=== PATIENT | female | born 1985 ===

== ENCOUNTER 2022-05-06 20:47 | Inpatient (IN) | payer BC, SELFPAY ==
[2022-05-06 21:20] VITALS: BP 94/64; PULSE 93; RESP 15; TEMP 36.9; O2SAT 97; BMI 36.1
--- NOTE | 2022-05-06 21:57 | ED_ITS ---
Documented by User: Sedrick Reynoso MD 05/14/22 17:21 HPI - Abdominal Pain General: Chief Complaint: Abdominal Pain Stated Complaint: abd pain Time Seen by Provider: 05/06/22 21:57 History of Present Illness: Ms. Mesa is a 36-year-old lady with history of multiple PEs, factor V Leiden, chronic anticoagulation, status post gastric sleeve surgery, status post IVC filter placement presenting to the emergency department due to abdominal pain. Reports onset of symptoms was subacute at approximately 5 AM this morning. Right-sided abdominal pain mostly in the right upper quadrant region though some in the right flank. Denies associated fevers, nausea, vomiting, change in bowel or bladder function. Has not had a period for 8 to 9 months reportedly going through menopause. Overall course of symptoms has worsened. Intensity is moderate to severe when moving however mild at rest. Tried Colace with successful bowel movement without specific relief of symptoms. Denies frequent episodes in the past. No other specific changes in health, exacerbating, or alleviating factors identified. Onset (ago): hour(s) Pain Consistency: constant Location: RUQ and R flank Severity: severe Migration to: no migration Exacerbating factors: movement Related Data: Date of Last Menstrual Period: 10/04/21 Review of Systems General: Reports: 10 or more systems reviewed and unremarkable except in HPI and below PFSH ED PFSH: Medical History Asthma Factor V deficiency PE (pulmonary thromboembolism) Presence of IVC filter Surgical History History of ankle surgery History of placement of ear tubes Hx of tonsillectomy S/P gastric sleeve procedure Social History Smoking and tobacco status: never smoked Alcohol intake: never Lives independently: Yes Household members: family Current occupational status: employed Female Reproductive History: Date of last menstrual period: 10/04/21 Physical Exam Const: COMMON NORMALS: alert GENERAL APPEARANCE: cooperative, well develo ped and in distress (uncomfortable due to pain) HENMT: COMMON NORMALS: normocephalic and atraumatic HEAD & SCALP: normo cephalic and atraumatic Eye: COMMON NORMALS: conjunctivae normal CONJUNCTIVA: Yes conjunctivae normal SCLERA: sclerae normal Neck/C-Spine: COMMON NORMALS: supple GENERAL: Yes trachea midline Resp: COMMON NORMALS: normal respiratory effort EFFORT & INSPECTION: Yes able to speak in complete sentences Cardio: COMMON NORMALS: regular rate and regular rhythm RATE: regular rate RHYTHM: regular rhythm GI: COMMON NORMALS: Soft to palpation PALPATION: Yes Soft to palpation, Yes Tenderness to palpation present (GI), No Guarding due to palpation present (GI) and No Rigid due to palpation Extremity: GENERAL: Yes normal exam except as noted and No edema Neuro: COMMON NORMALS: moves all extremities SENSORIUM/ORIENTATION: Yes alert and No Orientation impaired Psych: COMMON NORMALS: mental status grossly normal and Normal thought process present THOUGHT PROCESS: Normal thought process present Course Vital Signs: Vital signs: Vital Signs Temperature 98.3 F 05/10/22 07:43 Pulse Rate 63 05/10/22 08:56 Respiratory Rate 16 05/10/22 08:56 Blood Pressure 92/57 05/10/22 07:43 Pulse Oximetry 95 05/10/22 08:56 Oxygen Delivery Me thod 05/10/22 08:56 Oxygen Flow Rate 6 05/07/22 14:48 MDM - Abdominal Pain Medical Decision Making 36-year-old lady presenting with progressively worsening right flank and right mid abdominal pain. Tenderness on palpation, patient is nontoxic, no evidence of acute surgical abdomen. Laboratory studies obtained and reviewed. Further evaluation discussed with patient. Given severity and progressive nature of symptoms we will plan to obtain CT. Handed off to Dr. Arciniega pending completion of ED evaluation. 36-year-old female with a history of factor V Leyden deficiency on Xarelto. She presents with right-sided belly pain. She was checked out by the previous physician at shift change. CBC is normal. BMP is not terribly remarkable. Potassium was mildly low. CT of the abdomen pelvis shows mild to moderate acute appendicitis of a retrocecal appendix. Surgery is alerted. Recommendations are Zosyn. Because of factor V Leyden deficiency and anticoagulation, hospitalist w ill admit. However, she has not had her Xarelto in over 30 hours, and there is no hemorrhage, so reversal will likely not be necessary. Hospitalist will see the patient in the ER. Surgery will see the patient later this morning. Medical Records I reviewed the patient's medical records. Lab Data I reviewed the patient's lab results. : 05/10/22 01:38 05/10/22 01:38 Labs/Radiology: Radiology Impressions Abdomen/Pelvis CT 05/06/22 22:56 IMPRESSION: 1. IVC filter. 2. [id number] retrocecal appendicitis without abscess or perforation. COMMENTS: For patients with an IVC filter, recommend assessment for a management plan for the patient's IVC filter. If there is no established management plan, recommend referral to an interventional clinician on a nonemergent basis for evaluation. ADDENDUM: 05/07/22 0009 THIS REPORT CONTAINS FINDINGS THAT MAY BE CRITICAL TO PATIENT CARE. The findings were verbally communicated via telephone conference with Dr. Arcinieag at 12:07 AM CDT on 05/07/2022. The findings were acknowledged and understood. Gallbladder Ultrasound 05/07/22 02:23 IMPRESSION: 1. Fatty infiltration of the liver. 2. Normal gallbladder. Laboratory Results WBC 9.5 10^3/uL (4.0-10.0) 05/06/22 21:45 RBC 4.33 10^6/uL (4.1-5.3) 05/06/22 21:45 Hgb 14.1 g/dL (11.5-15.3) 05/06/22 21:45 Hct 41.8 % (37.0-47.0) 05/06/22 21:45 MCV 96.5 fl (81-99) 05/06/22 21:45 MCH 32.6 pg (28.0-34.0) 05/06/22 21:45 MCHC 33.7 g/dL (30.0-36.0) 05/06/22 21:45 RDW 11.9 % (12.1-15.1) L 05/06/22 21:45 Plt Count 201 10^3/cmm (130-400) 05/06/22 21:45 MPV 10.6 fL (7.4-10.4) H 05/06/22 21:45 Neut % (Auto) 59.9 % 05/06/22 21:45 Lymph % (Auto) 30.2 % 05/06/22 21:45 [place] % (Auto) 8.8 % 05/06/22 21:45 Eos % (Auto) 0.5 % 05/06/22 21:45 Baso % (Auto) 0.3 % 05/06/22 21:45 Neut # (Auto) 5.66 10^3/uL (1.8-7.7) 05/06/22 21:45 Lymph # (Auto) 2.9 10^3/uL (0.8-4.8) 05/06/22 21:45 [place] # (Auto) 0.8 10^3/uL (0.2-0.9) 05/06/22 21:45 Eos # (Auto) 0.1 10^3/uL (0.0-0.8) 05/06/22 21:45 Baso # (Auto) 0.0 10^3/uL (0.0-0.1) 05/06/22 21:45 Nucleated RBC % (auto) 0 % 05/06/22 21:45 Nucleated RBCs # 0.0 /100WBC 05/06/22 21:45 Sodium 136 mmol/L (136-145) 05/06/22 21:45 Potassium 3.4 mmol/L (3.5-5.1) L 05/06/22 21:45 Chloride 102 mmol/L (98-107) 05/06/22 21:45 Carbon Dioxide 25 mmol/L (22-29) 05/06/22 21:45 Anion Gap 12.4 (5-19) 05/06/22 21:45 BUN 13 mg/dL (6-20) 05/06/22 21:45 Creatinine 0.7 mg/dL (0.5-0.9) 05/06/22 21:45 GFR Calculation 93.6 mL/min (90-130) 05/06/22 21:45 Glucose 108 mg/dL (65-115) 05/06/22 21:45 Calculated Osmolality 283 mOsm/kg (285-295) L 05/06/22 21:45 Calcium 9.3 mg/dL (8.5-10.5) 05/06/22 21:45 Total Bilirubin 1.3 mg/dL (0.15-1.2) H 05/06/22 21:45 AST 18 U/L (0-32) 05/06/22 21:45 ALT 17 U/L (0-33) 05/06/22 21:45 Alkaline Phosphatase 109 U/L (35-105) H 05/06/22 21:45 Total Protein 7.4 g/dL (6.6-8.7) 05/06/22 21:45 Albumin 3.9 g/dL (3.5-5.2) 05/06/22 21:45 Globulin 3.5 g/dL (1.3-4.6) 05/06/22 21:45 Lipase 36 U/L (13-60) 05/06/22 21:45 HCG, Qual Negative (Negative) 05/06/22 21:45 Urine Color Yellow (Yellow) 05/06/22 21:15 Urine Appearance Clear (CLEAR) 05/06/22 21:15 Urine pH 6.5 (5-7) 05/06/22 21:15 Ur Specific Ash 1.015 (1.005-1.030) 05/06/22 21:15 Urine Protein Trace (Negative) 05/06/22 21:15 Urine Glucose (UA) Norm (Normal) 05/06/22 21:15 Urine Ketones 1+ (Negative) H 05/06/22 21:15 Urine Blood Neg (Negative) 05/06/22 21:15 Urine Nitrate Negative (Negative) 05/06/22 21:15 Urine Bilirubin 1+ (Negative) H 05/06/22 21:15 Urine Urobilinogen 4 mg/dL (Negative) H 05/06/22 21:15 Ur Leukocyte Esterase Trace (Negative) H 05/06/22 21:15 Urine RBC 0-4 /hpf (0-2) H 05/06/22 21:15 Urine WBC 5-10 /hpf (0-5) H 05/06/22 21:15 Ur Squamous Epith Cells 5-10 /hpf (0-5) H 05/06/22 21:15 Amorphous Sediment Not Reportable 05/06/22 21:15 Urine Bacteria Trace /hpf (NONE) 05/06/22 21:15 Urine Mucus 2+ /hpf 05/06/22 21:15 Discharge Plan Discharge Patient Disposition: Admitted As Inpatient Admit Provider: Placido Fishman Clinical Impression: Abdominal pain, Acute appendicitis Condition: Stable Discharge Diet: Advance as tolerated and Clear Liquid Discharge Activity: Increase activity as tolerated Coding Level of Care Code ED Sap Bw Bi Developer for Chg Fwd Documented by User: Srini ArciniegaDO 05/07/22 02:14 HPI - Abdominal Pain General: Chief Complaint: Abdominal Pain Stated Complaint: abd pain Time Seen by Provider: 05/06/22 21:57 PFSH ED PFSH: Medical History Asthma Factor V deficiency PE (pulmonary thromboembolism) Presence of IVC filter Surgical History History of ankle surgery History of placement of ear tubes Hx of tonsillectomy S/P gastric sleeve procedure Social History Smoking and tobacco status: never smoked Alcohol intake: never Lives independently: Yes Household members: family Current occupational status: employed Course Vital Signs: Vital signs: Vital Signs Temperature 98.3 F 05/10/22 07:43 Pulse Rate 63 05/10/22 08:56 Respiratory Rate 16 05/10/22 08:56 Blood Pressure 92/57 05/10/22 07:43 Pulse Oximetry 95 05/10/22 08:56 Oxygen Delivery Me thod 05/10/22 08:56 Oxygen Flow Rate 6 05/07/22 14:48 MDM - Abdominal Pain Medical Decision Making 36-year-old female with a history of factor V Leyden deficiency on Xarelto. She presents with right-sided belly pain. She was checked out by the previous physician at shift change. CBC is normal. BMP is not terribly remarkable. Potassium was mildly low. CT of the abdomen pelvis shows mild to moderate acute appendicitis of a retrocecal appendix. Surgery is alerted. Recommendations are Zosyn. Because of factor V Leyden deficiency and anticoagulation, hospitalist will admit. However, she has not had her Xarelto in over 30 hours, and there is no hemorrhage, so reversal will likely not be necessary. Hospitalist will see the patient in the ER. Surgery will see the patient later this morning. Lab Data : 05/10/22 01:38 05/10/22 01:38 Labs/Radiology: Radiology Impressions Abdomen/Pelvis CT 05/06/22 22:56 IMPRESSION: 1. IVC filter. 2. [id number] retrocecal appendicitis without abscess or perforation. COMMENTS: For patients with an IVC filter, recommend assessment for a management plan for the patient's IVC filter. If there is no established management plan, recommend referral to an interventional clinician on a nonemergent basis for evaluation. ADDENDUM: 05/07/22 0009 THIS REPORT CONTAINS FINDINGS THAT MAY BE CRITICAL TO PATIENT CARE. The findings were verbally communicated via telephone conference with Dr. Arciniega at 12:07 AM CDT on 05/07/2022. The findings were acknowledged and understood. Gallbladder Ultrasound 05/07/22 02:23 IMPRESSION: 1. Fatty infiltration of the liver. 2. Normal gallbladder. Laboratory Results WBC 9.5 10^3/uL (4.0-10.0) 05/06/22 21:45 RBC 4.33 10^6/uL (4.1-5.3) 05/06/22 21:45 Hgb 14.1 g/dL (11.5-15.3) 05/06/22 21:45 Hct 41.8 % (37.0-47.0) 05/06/22 21:45 MCV 96.5 fl (81-99) 05/06/22 21:45 MCH 32.6 pg (28.0-34.0) 05/06/22 21:45 MCHC 33.7 g/dL (30.0-36.0) 05/06/22 21:45 RDW 11.9 % (12.1-15.1) L 05/06/22 21:45 Plt Count 201 10^3/cmm (130-400) 05/06/22 21:45 MPV 10.6 fL (7.4-10.4) H 05/06/22 21:45 Neut % (Auto) 59.9 % 05/06/22 21:45 Lymph % (Auto) 30.2 % 05/06/22 21:45 [place] % (Auto) 8.8 % 05/06/22 21:45 Eos % (Auto) 0.5 % 05/06/22 21:45 Baso % (Auto) 0.3 % 05/06/22 21:45 Neut # (Auto) 5.66 10^3/uL (1.8-7.7) 05/06/22 21:45 Lymph # (Auto) 2.9 10^3/uL (0.8-4.8) 05/06/22 21:45 [place] # (Auto) 0.8 10^3/uL (0.2-0.9) 05/06/22 21:45 Eos # (Auto) 0.1 10^3/uL (0.0-0.8) 05/06/22 21:45 Baso # (Auto) 0.0 10^3/uL (0.0-0.1) 05/06/22 21:45 Nucleated RBC % (auto) 0 % 05/06/22 21:45 Nucleated RBCs # 0.0 /100WBC 05/06/22 21:45 Sodium 136 mmol/L (136-145) 05/06/22 21:45 Potassium 3.4 mmol/L (3.5-5.1) L 05/06/22 21:45 Chloride 102 mmol/L (98-107) 05/06/22 21:45 Carbon Dioxide 25 mmol/L (22-29) 05/06/22 21:45 Anion Gap 12.4 (5-19) 05/06/22 21:45 BUN 13 mg/dL (6-20) 05/06/22 21:45 Creatinine 0.7 mg/dL (0.5-0.9) 05/06/22 21:45 GFR Calculation 93.6 mL/min (90-130) 05/06/22 21:45 Glucose 108 mg/dL (65-115) 05/06/22 21:45 Calculated Osmolality 283 mOsm/kg (285-295) L 05/06/22 21:45 Calcium 9.3 mg/dL (8.5-10.5) 05/06/22 21:45 Total Bilirubin 1.3 mg/dL (0.15-1.2) H 05/06/22 21:45 AST 18 U/L (0-32) 05/06/22 21:45 ALT 17 U/L (0-33) 05/06/22 21:45 Alkaline Phosphatase 109 U/L (35-105) H 05/06/22 21:45 Total Protein 7.4 g/dL (6.6-8.7) 05/06/22 21:45 Albumin 3.9 g/dL (3.5-5.2) 05/06/22 21:45 Globulin 3.5 g/dL (1.3-4.6) 05/06/22 21:45 Lipase 36 U/L (13-60) 05/06/22 21:45 HCG, Qual Negative (Negative) 05/06/22 21:45 Urine Color Yellow (Yellow) 05/06/22 21:15 Urine Appearance Clear (CLEAR) 05/06/22 21:15 Urine pH 6.5 (5-7) 05/06/22 21:15 Ur Specific Ash 1.015 (1.005-1.030) 05/06/22 21:15 Urine Protein Trace (Negative) 05/06/22 21:15 Urine Glucose (UA) Norm (Normal) 05/06/22 21:15 Urine Ketones 1+ (Negative) H 05/06/22 21:15 Urine Blood Neg (Negative) 05/06/22 21:15 Urine Nitrate Negative (Negative) 05/06/22 21:15 Urine Bilirubin 1+ (Negative) H 05/06/22 21:15 Urine Urobilinogen 4 mg/dL (Negative) H 05/06/22 21:15 Ur Leukocyte Esterase Trace (Negative) H 05/06/22 21:15 Urine RBC 0-4 /hpf (0-2) H 05/06/22 21:15 Urine WBC 5-10 /hpf (0-5) H 05/06/22 21:15 Ur Squamous Epith Cells 5-10 /hpf (0-5) H 05/06/22 21:15 Amorphous Sediment Not Reportable 05/06/22 21:15 Urine Bacteria Trace /hpf (NONE) 05/06/22 21:15 Urine Mucus 2+ /hpf 05/06/22 21:15 Discharge Plan Discharge Patient Disposition: Admitted As Inpatient Admit Provider: Placido Fishman Clinical Impression: Abdominal pain, Acute appendicitis Condition: Stable Discharge Diet: Advance as tolerated and Clear Liquid Discharge Activity: Increase activity as tolerated Coding Level of Care Code ED Sap Bw Bi Developer for Pravin Epperson
[2022-05-06 22:03] LABS: Basophils % 0.3 %; Eosinophils # 0.1 10^3/uL (0.0-0.8); Eosinophils % 0.5 %; Hematocrit 41.8 % (37.0-47.0); Hemoglobin 14.1 g/dL (11.5-15.3); Lymphocytes # 2.9 10^3/uL (0.8-4.8); Lymphocytes % 30.2 %; Mean Corpuscular HGB Conc 33.7 g/dL (30.0-36.0); Mean Corpuscular Hemoglobin 32.6 pg (28.0-34.0); Mean Corpuscular Volume 96.5 fl (81-99); Mean Platelet Volume 10.6 fL (7.4-10.4); Monocytes # 0.8 10^3/uL (0.2-0.9); Monocytes % 8.8 %; Neutrophils # 5.66 10^3/uL (1.8-7.7); Neutrophils % 59.9 %; Nucleated Red Blood Cells % 0 %; Platelet Count 201 10^3/cmm (130-400); Red Blood Count 4.33 10^6/uL (4.1-5.3); Red Cell Distribution Width 11.9 % (12.1-15.1); White Blood Count 9.5 10^3/uL (4.0-10.0)
[2022-05-06] MEDS: acetaminophen 500 mg Tablet 1000 MG PO (22:29)
[2022-05-06 22:32] LABS: Alanine Aminotransferase 17 U/L (0-33); Albumin Level 3.9 g/dL (3.5-5.2); Alkaline Phosphatase 109 U/L (35-105); Anion Gap 12.4 (5-19); Aspartate Amino Transferase 18 U/L (0-32); Blood Urea Nitrogen 13 mg/dL (6-20); Calcium 9.3 mg/dL (8.5-10.5); Carbon Dioxide 25 mmol/L (22-29); Chloride 102 mmol/L (98-107); Globulin 3.5 g/dL (1.3-4.6); Glomerular Filtration Rate 93.6 mL/min (90-130); Glucose 108 mg/dL (65-115); Lipase 36 U/L (13-60); Osmolality Calculated 283 mOsm/kg (285-295); Potassium 3.4 mmol/L (3.5-5.1); Sodium 136 mmol/L (136-145); Total Bilirubin 1.3 mg/dL (0.15-1.2); Total Protein 7.4 g/dL (6.6-8.7)
[2022-05-06 22:37] LABS: HCG, Serum Qual Negative (Negative)
[2022-05-06 22:41] LABS: Protein Urine Trace (Negative); Specific Gravity, Urine 1.015 (1.005-1.030); Urine Appearance Clear (CLEAR); Urine Color Yellow (Yellow); pH Urine 6.5 (5-7)
[2022-05-06 22:42] LABS: Add Urine Microscopic? YES; Bilirubin Urine 1+ (Negative); Blood Urine Neg (Negative); Glucose Urine UA Norm (Normal); Ketones Urine 1+ (Negative); Leukocyte Esterase Urine Trace (Negative); Nitrate Urine Negative (Negative); Urobilinogen Urine 4 mg/dL (Negative)
[2022-05-06 22:45] LABS: Add Urine Culture? No; Bacteria Urine TRACE /hpf; Mucus Urine 2+ /hpf; RBC Urine 0-4 /hpf (0-2)
--- NOTE | 2022-05-06 22:56 | CTR_ITS ---
PROCEDURE INFORMATION: Exam: CT Abdomen And Pelvis With Contrast Exam date and time: 05/06/2022 11:04 PM Age: 36 years old Clinical indication: Abdominal pain; Localized; Right upper quadrant (ruq); Additional info: R side, ruq and mid pain TECHNIQUE: Imaging protocol: Computed tomography of the abdomen and pelvis with contrast. Radiation optimization: All CT scans at this facility use at least one of these dose optimization techniques: automated exposure control; mA and/or kV adjustment per patient size (includes targeted exams where dose is matched to clinical indication); or iterative reconstruction. Contrast material: OMNI 350; Contrast volume: 100 ml; Contrast route: INTRAVENOUS (IV); COMPARISON: No relevant prior studies available. RADIATION DOSE METRICS: Total DLP (mGy-cm): 1179.93 FINDINGS: Liver: Low density focal fatty infiltration within the liver, anterior to the falciform ligament. This is a common finding. Gallbladder and bile ducts: Normal. No calcified stones. No ductal dilation. Pancreas: Normal. No ductal dilation. Spleen: Normal. No splenomegaly. Adrenal glands: Normal. No mass. Kidneys and ureters: Normal. No hydronephrosis. Stomach and bowel: Unremarkable. No obstruction. No mucosal thickening. Appendix: Omvd-pj-[id number] retrocecal appendicitis without abscess or perforation. Intraperitoneal space: Unremarkable. No free air. No significant fluid collection. Vasculature: IVC filter. Lymph nodes: Unremarkable. No enlarged lymph nodes. Urinary bladder: Unremarkable as visualized. Reproductive: Bilateral tubal ligation. 2 cm right ovarian cyst. Bones/joints: Unremarkable. No acute fracture. Soft tissues: Unremarkable. CT/CT abdomen pelvis w con* [id number] IMPRESSION: 1. IVC filter. 2. [id number] retrocecal appendicitis without abscess or perforation. COMMENTS: For patients with an IVC filter, recommend assessment for a management plan for the patient's IVC filter. If there is no established management plan, recommend referral to an interventional clinician on a nonemergent basis for evaluation.
[2022-05-06] MEDS: iohexol 350 mg/mL 100 mL Btl IV (23:03)
[2022-05-07] VITALS (21 sets, daily range): BP systolic 93–122; BP diastolic 53–87; PULSE 56–96; RESP 12–56; TEMP 36.1–36.8; O2SAT 92–100
[2022-05-07] MEDS: piperacillin-tazobactam 3.375 GM in sodium chloride 0.9% (plus) 50 ML IV ×3 (00:39→17:55)
--- NOTE | 2022-05-07 02:23 | USR_ITS ---
PROCEDURE INFORMATION: Exam: US Abdomen, Limited; Right Upper Quadrant Exam date and time: 05/07/2022 4:25 AM Age: 36 years old Clinical indication: Other: Abnormal blood work; Additional info: R flank pain. Tbili, ap elev, assess gb, called floor and put npo. Will do in early am TECHNIQUE: Imaging protocol: Real time ultrasound of the abdomen with image documentation. Limited exam focused on the right upper quadrant. COMPARISON: CT abdomen pelvis w con* [id number] 05/06/2022 11:04 PM FINDINGS: Liver: Fatty infiltration of the liver. Gallbladder: Sonographically negative Carey's sign suggesting no cholecystitis. Normal 1.8 mm gallbladder wall. Biliary ducts: Normal 4.1 mm common bile duct. Pancreas: Visualized pancreas is unremarkable. Right kidney: 9.5 x 4.3 x 6.0 cm right kidney. US/US gall bladder [id number] IMPRESSION: 1. Fatty infiltration of the liver. 2. Normal gallbladder.
--- NOTE | 2022-05-07 02:56 | PM.HP ---
Providers/Chief Complaint Admitting Physician: Placido Fishman Chief Complaint: abd pain History of Present Illness Pleasant 36-year-old lady with history of factor V Leiden deficiency, history of PE x5, on chronic anticoagulation with Xarelto, last dose was 05/05 at 8 PM, history of IVC filter, history of asthma well-controlled with Nucala, history of gastric sleeve surgery, lives in [place], was here with her son hunting in the area, since the morning started having right lower quadrant abdominal discomfort, although states has not had very good appetite over several days. Has been afebrile. No vomiting or diarrhea. In ER with noted right flank pain. Noted mild ovation of T bili 1.3, alk phos mildly elevated 109. Transaminases normal. UA with mild normality there-4 RBC, 510 WBC, but also 5-10 squamous Pelo cells. 2+ mucus. 1+ ketones. 1+ bilirubin. Urobilinogen 4 mg/dL. Contrast CT abdomen pelvis with noted mild to moderate retrocecal appendicitis without abscess or perforation. IVC filter in place. Review of Systems Const: Reports: change in appetite; Denies: fever(s), chills, body aches or malaise Eyes: Denies: change in vision, eye discomfort or eye redness ENMT: Denies: throat pain, oral sores or ear or mastoid pain Card: Denies: chest pain, edema, pre-syncope or dyspnea on exertion Resp: Denies: dyspnea, productive cough, change in phlegm color or hemoptysis GI: Reports: abdominal pain; Denies: vomiting, diarrhea, constipation, hematochezia or melena : Denies: flank pain, urinary frequency or hematuria Musc: Denies: back pain, joint swelling or joint redness Skin/Breast: Denies: rash or new lesions Neuro: Denies: headache(s), numbness in extremities, weakness in extremities, dizziness, confusion or seizure-like activity Endo: Denies: polyuria or polydipsia Ervin/Lymph: Denies: easy bleeding or tender lymph nodes All/Imm: Denies: urticaria or tongue swelling Medications/Allergies Allergies Allergy/AdvReac Type Severity Reaction Status Date / Time Penicillins Allergy Unknown Unknown Verified 05/07/22 02:44 PFSH Acute PFSH: Medical History Asthma Factor V deficiency PE (pulmonary thromboembolism) Presence of IVC filter Surgical History History of ankle surgery History of placement of ear tubes Hx of tonsillectomy S/P gastric sleeve procedure Social History Smoking and tobacco status: never smoked Alcohol intake: never Substance/Drug Use: never Lives independently: Yes Household members: family Current occupational status: employed Female Reproductive History: Date of last menstrual period: 10/05/21 Vitals/I&O/Wt Last Vital Signs Temp 97.4 F L 05/07/22 02:49 Pulse 63 05/07/22 02:49 Resp 18 05/07/22 02:49 BP 94/65 05/07/22 02:49 Pulse Ox 97 05/07/22 02:49 O2 Del Method 05/07/22 02:49 Weight last 48 hrs Weight 81.306 kg Physical Exam Const: COMMON NORMALS: patient oriented x3 and alert GENERAL APPEARANCE: cooperative ORIENTATION/CONSCIOUSNESS: Yes awake HENMT: COMMON NORMALS: oropharynx normal Neck/C-Spine: COMMON NORMALS: no JVD Resp: COMMON NORMALS: normal respiratory effort and clear to auscultation bilaterally AUSCULTATION: clear to auscultation bilaterally Cardio: COMMON NORMALS: no JVD, regular rhythm, S1 normal heart sound present, S2 normal heart sound present and No murmurs present (Cardio) RHYTHM: regular rhythm HEART SOUNDS: S1 normal heart sound present and S2 normal heart sound present GI: COMMON NORMALS: Normal to inspection, nondistended, normoactive bowel sounds present and Soft to palpation PALPATION: Yes Soft to palpation and Yes Tenderness to palpation present (GI) OTHER: Tender R side abdomen, right flank. Extremity: COMMON NORMALS: no joint enlargement and no pedal edema Neuro: COMMON NORMALS: patient oriented x3 and moves all extremities SENSORIUM/ORIENTATION: Yes alert Skin: COMMON NORMALS: no rashes or lesions noted GENERAL SKIN EXAM: no rashes or lesions noted Data : 05/06/22 21:45 05/06/22 21:45 A&P Assessment and plan (1) Acute appendicitis: Appendicitis noted on CT. On anticoagulation, last Xarelto dose was 05/05 at 8 PM. Hold further Xarelto. Bridged with heparin drip currently until ready to proceed with surgery. In the meantime continue IV Zosyn. She states was told since childhood had penicillin allergy, but tolerated Zosyn without incident in ER and is okay with continuing. Bowel rest. She otherwise has asthma but has been well controlled with Nucala, has been at baseline state of health. He is from [place], was here hunting with her 15-year-old son. (2) Cholestasis: Entire right side abdominal pain, including right upper quadrant. Gallbladder appeared normal on CT. Will obtain ultrasound assessment. I do suspect that minimal transaminitis and minimal alk phos elevation may be due to some cholestasis from dehydration, however, we will further assess for possibility of cholecystitis. IV hydration. (3) Abnormal urinalysis: Repeat UA Plan Mild hypokalemia: Replace Dehydration: IV hydration. Factor V Leiden deficiency, history of 5 PEs, IVC filter: Xarelto on hold. Bridge with heparin drip.IV hydration. Asthma: Albuterol nebs as needed. Reports has been well controlled with Nucala. GERD: Pantoprazole Attestations Medical Necessity Statement*: Admission of over 2 midnights anticipated for assessment management of acute appendicitis, further assessment of gallbladder, and a lady on anticoagulation with history of factor V Leiden deficiency with history of PE x5. Coding Level of Care Code Acute Chief Creative Officer for Pravin Epperson Diagnoses Acute appendicitis K35.80 Cholestasis K83.1 Abnormal urinalysis R82.90
[2022-05-07] MEDS: lactated ringers 1,000 ML 100 ML IV ×2 (03:09→19:22)
[2022-05-07] MEDS: acetaminophen 325 mg Tablet 650 MG PO ×2 (03:09→17:56)
[2022-05-07] MEDS: lidocaine 1% 5 ML in potassium chloride premix 100 ML 50 ML IV (04:33)
[2022-05-07] MEDS: heparin 5,000 unit/mL INJ 1 mL IV (05:18)
[2022-05-07] MEDS: heparin drip 25,000 UNIT/500 ML PREMIX 24 UNIT IV ×2 (05:20→22:10)
--- NOTE | 2022-05-07 07:10 | P.CONIM_ITS ---
Providers/Reason For Consult Consulting Physician/Specialty*: Peter Aleman MD Reason for Consult*: Acute appendicitis Attending Physician: Placido Fishman History of Present Illness History of Present Illness This stone Mesa is a pleasant 36 year old female presents to the emergency department with abdominal pain mostly on the right side. Patient has history of factor V Leiden deficiency, history of PE x5 on chronic anticoagulation in the form of Xarelto last dose was given and 05/05 at 8 PM with history of IVC filter. Patient also has history of bronchial asthma and gastric sleeve for weight loss surgery. Patient came to the area with her 15 years old son for hunting and she started to encounter right lower quadrant abdominal pain. And reports that she has not been having good appetite. Patient reports that the pain has been dull nothing seems to make it better but moving around makes it worse. Is not being referred and not associated with dysuria or diarrhea. No evidence of chills or fevers. Further work-up in the ER showed WBC count of 9.5, hemoglobin 14.1, platelet 201, sodium 136, potassium 3.4, total bilirubin 1.3 and alk phos 109. Undergone a CT of the abdomen pelvis that did show; 1. IVC filter. 2. [id number] retrocecal appendicitis without abscess or perforation. ? Also patient undergone an ultrasound of the gallbladder that did show 1. Fatty infiltration of the liver. 2. Normal gallbladder. ? General surgery was consulted for further evaluation. Review of Systems General: Reports: 10 or more systems reviewed and unremarkable except in HPI and below Medications/Allergies Home Medications Medication Instructions Recorded Confirmed Last Taken Type Ventolin HFA 2 actuation PO Q5MIN PRN Shortness 05/07/22 05/07/22 Unknown History Of Breath Or Wheezing Xarelto 1 tab PO BEDTIME PE 05/07/22 05/07/22 05/05/22 20:00 History budesonide-formoterol HFA 160 2 puff inhalation BID 05/07/22 05/07/22 Unknown History mcg-4.5 mcg/actuation aerosol inhaler (Symbicort) fexofenadine 180 mg tablet 180 mg PO DAILY 05/07/22 05/07/22 05/05/22 20:00 History mepolizumab 100 mg/mL subcutaneous 100 mg SUBCUT DIRECTED 1005/07/22 04/23/22 20:00 History auto-injector (Nucala) montelukast 10 mg tablet 10 mg PO QPM 05/07/22 05/07/22 05/05/22 20:00 History (Singulair) multivit with 1 tab PO BID 05/07/22 05/07/22 05/06/22 08:00 History jsbqbzgd-uuqq-GQ-lutein 8 mg iron-400 mcg-300 mcg tablet (Centrum Silver Women) pantoprazole 20 mg tablet,delayed 20 mg PO DAILY 05/07/22 05/07/22 05/05/22 20:00 History release (Protonix) Allergies Allergy/AdvReac Type Severity Reaction Status Date / Time Penicillins Allergy Unknown Unknown Verified 05/07/22 07:14 Current Medications Generic Name Dose Route Start Last Admin Trade Name Freq PRN Reason Stop Dose Admin Acetaminophen 650 mg 05/07/22 02:50 05/07/22 03:09 Acetaminophen 325 Mg Tablet PO 650 mg Q4H PRN Administration MILD PAIN OR INCREASE TEMP Heparin Sodium (Porcine) 0 unit 05/07/22 03:02 05/07/22 05:18 Heparin 5,000 Unit/Ml Inj 1 Ml IV 4,300 unit PRN PRN Administration Heparin weight-base protocol Protocol Lactated Ringer's 1,000 mls @ 100 mls/hr 05/07/22 03:00 05/07/22 03:09 Lactated Ringers IV 100 mls/hr .Q10H JODIE Administration Heparin Sodium/Sodium Chloride 25,000 unit in 500 mls @ 0 mls/hr 05/07/22 03:15 05/07/22 05:20 Heparin Drip IV 14.76 unit/kg/hr .Q0M JODIE 24 mls/hr Administration Protocol Per Protocol PFSH Acute PFSH: Medical History Asthma Factor V deficiency PE (pulmonary thromboembolism) Presence of IVC filter Surgical History History of ankle surgery History of placement of ear tubes Hx of tonsillectomy S/P gastric sleeve procedure Social History Smoking and tobacco status: never smoked Alcohol intake: never Substance/Drug Use: never Lives independently: Yes Household members: family Current occupational status: employed Female Reproductive History: Date of last menstrual period: 10/05/21 Vitals/I&O/Wt Last Vital Signs Temp 97.4 F L 05/07/22 02:49 Pulse 66 05/07/22 03:51 Resp 16 05/07/22 03:51 BP 94/65 05/07/22 02:49 Pulse Ox 98 05/07/22 03:51 O2 Del Method 05/07/22 03:51 05/06/22 05/07/22 05/07/22 22:59 06:59 14:59 Intake Total 105 / 105 Balance 105 / 105 Weight last 48 hrs Weight 179 lb 4 oz Physical Exam Const: COMMON NORMALS: no acute distress and patient oriented x3 GENERAL APPEARANCE: cooperative ORIENTATION/CONSCIOUSNESS: Yes awake, Yes oriented to person, Yes oriented to place and Yes oriented to time HENMT: COMMON NORMALS: normocephalic HEAD & SCALP: normocephalic Eye: COMMON NORMALS: Equal, round and reactive pupils present and no scleral icterus PUPIL: Yes Equal, round and reactive pupils present Lymph: LYMPHATIC: no lymphadenopathy noted Chest: COMMONS NORMALS: normal inspection of the chest Resp: COMMON NORMALS: normal respiratory effort and clear to auscultation bilaterally AUSCULTATION: clear to auscultation bilaterally Cardio: COMMON NORMALS: S1 normal heart sound present and S2 normal heart sound present; negative for No murmurs present (Cardio) HEART SOUNDS: S1 normal heart sound present and S2 normal heart sound present GI: COMMON NORMALS: Soft to palpation; negative for No hepatosplenomegaly present INSPECTION: Yes normal to inspection PALPATION: Yes Soft to palpation, No Firmness to palpation present (GI), Yes Tenderness to palpation present (GI) Details: RLQ (Localized guarding and rigidity consistent with acute appendicitis), No Guarding due to palpation present (GI), No Rigid due to palpation, No No hepatosplenomegaly present and Yes Other GI palpation findings present (Maximal tenderness at McBurney's po int.) Neuro: COMMON NORMALS: patient oriented x3 SENSORIUM/ORIENTATION: Yes oriented to person, Yes oriented to place and Yes oriented to time Psych: COMMON NORMALS: mental status grossly normal Skin: COMMON NORMALS: no rashes or lesions noted GENERAL SKIN EXAM: no rashes or lesions noted Data : 05/06/22 21:45 05/06/22 21:45 A&P Assessment and plan (1) Acute appendicitis: After thorough history physical examination and reviewing the chart and images with my personal interpretion, I counseled the patient for laparoscopic appendectomy possible open. Indications, risks, benefits and alternatives were all discussed with the patient and did agree to proceed. Rationale was carefully and clearly discussed with the patient.Appropriate informed consent have been reviewed and signed. (2) Factor V deficiency: After thorough history physical examination and reviewing the chart and images and further discussing the case with Dr. Fishman hospitalist service. Patient is currently on heparin drip and will plan to go in the afternoon for laparoscopic appendectomy to give enough window for the Xarelto to wear off meanwhile patient is being anticoagulated safely, we will hold the heparin drip at 2 PM and will proceed with surgery at 4 PM. Patient understands the risk of bleeding, blood clot formation and/or perforation of the appendicitis. Also she does understand the potential risk of developing a postoperative hematoma that can get infected and turned to an abscess formation that would require further surgical intervention or image guided drainage. The plan of care has been discussed in depth and in length with the patient in the presence of the nursing staff Katherine and Steve. Patient understands and she is interested to proceed accordingly Will continue coordinate care with hospitalist service. And while patient is receiving IV antibiotics and IV fluids Assurance and education All questions have been answered and all concerns have been addressed to patient's satisfaction. Consult Attestations Medical Necessity Statement: Per admitting service Time Spent in Patient Care: 16 - 35 minutes Coding Level of Care Code Acute Shoe Repairer Helper for [facility] Fwd Diagnoses Acute appendicitis K35.80 Factor V deficiency D68.2
[2022-05-07] MEDS: budesonide 0.5 mg/2 mL Neb INHALATION ×2 (09:04→22:01)
[2022-05-07 10:04] LABS: INR 1.22 (0.8-1.2)
[2022-05-07] MEDS: pantoprazole 40 mg SDV IVP (10:07)
--- NOTE | 2022-05-07 12:39 | P.ANESASSM_ITS ---
Pre-Anesthetic Assessment Height/Weight: Height 1.5 m Weight 81.306 kg Temp Pulse Resp BP Pulse Ox O2 Del Method 97.9 F 69 15 95/60 96 05/07/22 11:43 05/07/22 11:43 05/07/22 11:43 05/07/22 11:43 05/07/22 11:43 05/07/22 11:43 Preop Diagnosis: Acute appendicitis Operation Date: 05/07/22 16:00 Proposed Procedures p Laparoscopic Appendectomy(Not Applicable) - Peter Aleman MD Familial anesthetic complications: Delayed awakening Was Beta Noe taken within 24 hours: N/A Was Clonidine taken within 24 hours: N/A Social No alcohol and No tobacco Exam alert, oriented x 3, clear to auscultation bilaterally and regular rate & rhythm Airway Submandibular: within normal limits Cervical ROM: within normal limits Mallampati: Class II Dentition: full CV/HEM Factor V def GI Gastroesophageal Reflux Disease Metabolic Morbid Obesity ((recent gastric sleeve)) Anesthetic Plan ASA status: 3 Anesthesia: General (Mod RSI) Medications/Allergies Home Medications Medication Instructions Recorded Confirmed Last Taken Type Ventolin HFA 2 actuation PO Q5MIN PRN Shortness 05/07/22 05/07/22 Unknown His tory Of Breath Or Wheezing Xarelto 1 tab PO BEDTIME PE 05/07/22 05/07/22 05/05/22 20:00 History budesonide-formoterol HFA 160 2 puff inhalation BID 05/07/22 05/07/22 Unknown History mcg-4.5 mcg/actuation aerosol inhaler (Symbicort) fexofenadine 180 mg tablet 180 mg PO DAILY 05/07/22 05/07/22 05/05/22 20:00 History mepolizumab 100 mg/mL subcutaneous 100 mg SUBCUT DIRECTED 05/07/22 05/07/22 04/23/22 20:00 History auto-injector (Nucala) montelukast 10 mg tablet 10 mg PO QPM 05/07/22 05/07/22 05/05/22 20:00 History (Singulair) multivit with 1 tab PO BID 05/07/22 05/07/22 05/06/22 08:00 History vkjpaqba-sxec-AK-lutein 8 mg iron-400 mcg-300 mcg tablet (Centrum Silver Women) pantoprazole 20 mg tablet,delayed 20 mg PO DAILY 05/07/22 05/07/22 05/05/22 20:00 History release (Protonix) Allergies Allergy/AdvReac Type Severity Reaction Status Date / Time Penicillins Allergy Unknown Unknown Verified 05/07/22 07:14 Current Medications Generic Name Dose Route Start Last Admin Trade Name Freq PRN Reason Stop Dose Admin Acetaminophen 650 mg 05/07/22 02:50 05/07/22 03:09 Acetaminophen 325 Mg Tablet PO 650 mg Q4H PRN Administration MILD PAIN OR INCREASE TEMP Budesonide 0.5 mg 05/07/22 08:00 05/07/22 09:04 Budesonide 0.5 Mg/2 Ml Neb INHALATION 0.5 mg BID.RESPIRATORY JODIE Administration Heparin Sodium (Porcine) 0 unit 05/07/22 03:02 05/07/22 05:18 Heparin 5,000 Unit/Ml Inj 1 Ml IV 4,300 unit PRN PRN Administration Heparin weight-base protocol Protocol Lactated Ringer's 1,000 mls @ 100 mls/hr 05/07/22 03:00 05/07/22 03:09 Lactated Ringers IV 100 mls/hr .Q10H JODIE Administration Heparin Sodium/Sodium Chloride 25,000 unit in 500 mls @ 0 mls/hr 05/07/22 03:15 05/07/22 05:20 Heparin Drip IV 14.76 unit/kg/hr .Q0M JODIE 24 mls/hr Administration Protocol Per Protocol Piperacillin Sod/Tazobactam 50 mls @ 12.5 mls/hr 05/07/22 10:00 05/07/22 10:06 Sod 3.375 gm/ Sodium Chloride IV 12.5 mls/hr Q8H JODIE Administration Protocol Pantoprazole Sodium 40 mg 05/07/22 09:00 05/07/22 10:07 Pantoprazole 40 Mg Sdv IVP 40 mg DAILY JODIE Administration PFSH Anesthesia Medical History Asthma Factor V deficiency PE (pulmonary thromboembolism) Presence of IVC filter Surgical History History of ankle surgery History of placement of ear tubes Hx of tonsillectomy S/P gastric sleeve procedure Social History Smoking and tobacco status: never smoked Alcohol intake: never Substance/Drug Use: never Lives independently: Yes Household members: family Current occupational status: employed Female Reproductive History Date of last menstrual period: 10/05/21 Data Anesthesia : 05/06/22 21:45 05/06/22 21:45 Short CBC 05/06/22 Range/Units 21:45 WBC 9.5 (4.0-10.0) 10^3/uL Hgb 14.1 (11.5-15.3) g/dL Hct 41.8 (37.0-47.0) % MCV 96.5 (81-99) fl Plt Count 201 (130-400) 10^3/cmm Neut % (Auto) 59.9 % Neut # (Auto) 5.66 (1.8-7.7) 10^3/uL BMP 05/06/22 21:45 Sodium 136 Potassium 3.4 L Chloride 102 Carbon Dioxide 25 BUN 13 Creatinine 0.7 Glucose 108 Calcium 9.3 Liver Function 05/06/22 Range/Units 21:45 Total Bilirubin 1.3 H (0.15-1.2) mg/dL AST 18 (0-32) U/L ALT 17 (0-33) U/L Alkaline Phosphatase 109 H (35-105) U/L Albumin 3.9 (3.5-5.2) g/dL Urine 05/06/22 Range/Units 21:15 Urine Color Yellow (Yellow) Urine Appearance Clear (CLEAR) Urine pH 6.5 (5-7) Ur Specific [place] 1.015 (1.005-1.030) Urine Protein Trace (Negative) Urine Glucose (UA) Norm (Normal) Urine Ketones 1+ H (Negative) Urine Nitrate Negative (Negative) Urine Bilirubin 1+ H (Negative) Ur Leukocyte Esterase Trace H (Negative) Urine RBC 0-4 H (0-2) /hpf Urine WBC 5-10 H (0-5) /hpf Blood Bank 05/07/22 09:30 Blood Type A Positive Rho(D) Type Positive Antibody Screen Negative Coags 05/07/22 09:30 PT 15.70 H INR 1.22 H Cardiac Studies: No Data to Display
[2022-05-07] MEDS: acetaminophen 1,000 MG/100 ML PIGGYBACK 400 MG IV (12:48)
[2022-05-07] MEDS: scopolamine 1.5 Patch 1 PATCH TRANSDERMA (13:00)
[2022-05-07] MEDS: ondansetron 2 mg/ML SDV 2 mL 4 MG IVP (13:00)
[2022-05-07 13:24] LABS: Glucose Urine UA Norm (Normal); Protein Urine Neg (Negative); Specific Gravity, Urine 1.015 (1.005-1.030); Urine Appearance Hazy (CLEAR); Urine Color Yellow (Yellow); pH Urine 7 (5-7)
[2022-05-07 13:25] LABS: Add Urine Culture? No; Add Urine Microscopic? YES; Amorphous Sediment Urine 3+ /hpf; Bacteria Urine TRACE /hpf; Bilirubin Urine Neg (Negative); Blood Urine Neg (Negative); Ketones Urine 2+ (Negative); Leukocyte Esterase Urine Negative (Negative); Nitrate Urine Negative (Negative); Squamous Epithelial Cell Urine 0-4 /hpf (0-5); Urobilinogen Urine 1 mg/dL (Negative)
--- NOTE | 2022-05-07 13:25 | PM.MISC ---
Miscellaneous Note Purpose of Documentation: Cross coverage documentation Note: H&P and labs appreciated. Sitting comfortably in bed on examination with family at bedside. States does not have pain when not moving. Continue heparin drip to be stopped 2 hours prior to the surgery. Continue IV fluids. Continue other home medications. Continue with empiric Zosyn. Will change further treatment as per clinical picture. Restart heparin drip postoperatively once agreeable with surgery.
[2022-05-07] MEDS: lidocaine 1% INJ 20 mL INJECTION (13:59)
--- NOTE | 2022-05-07 14:20 | P.OP_ITS ---
Operative Report Date of procedure: May 07, 2022 Pre-op diagnosis: Preop Diagnosis Acute appendicitis Post-op diagnosis: Acute retrocecal appendicitis Procedure done: Laparoscopic appendectomy Implants: 10 mm clips Specimens removed/disposition: Appendix Surgeon: Peter Aleman MD Spinning Lathe Operator Automatic: Armond Power Circulating nurse Aiyana Sierra Anesthesia: General (MARIA ESTHER John) Estimated blood loss (mL): 5 IV fluids (mL): 800 Procedure: Patient after being identified in the holding area and asked to void urine, and informed consent per chart ,patient was then taken back to the OR placed in supine position got intubated by anesthesia left arm was tucked tucked ,Timeout was done verifying the patient's name/date of /planned procedure and destination after the procedure, all were in agreement., preoperative antibiotics administered per protocol. prep and drape of the abdomen was done under the usual sterile technique. Started by longitudinal skin incision supraumbilical using a Nuno trocar technique safe entry to the abdominal cavity was achieved verified by using 10 mm zero degree laparoscopy, switched to a 30? scope under direct visualization a suprapubic longer 5 mm trocar was inserted followed by another 5 mm trocar inserted in the left lower quadrant, I was able to position the patient in an T Fontaine and left side down, dissection of the retrocecal acutely inflamed appendix, noticed mesoappendix was bulky and inflamed, attention was deviated to the healthy base of the appendix where I had to switch the camera to 5 mm 30? scope got introduced through the left lower quadrant and through the Nuno trocar under direct visualization a GI stapler 45 mm blue load was applied at the healthy part of the base of the appendix, and an Endoloop PDS was applied onto the mesoappendix for control , the appendix was then retrieved in an Endo Catch bag, final survey was done of the abdomen and pelvis, irrigation with warm saline, and suction was obtained. Multiple 10 mm clips were applied onto the mesoappendix as well as the appendectomy staple line To prevent any potential future bleeding. Final look laparoscopy was done showing no other abnormalities or injuries, all trocars were taken out under direct visualization after the supraumblical trocar site was closed by #1 PDS sutures under direct vision using fascial closure device, copious irrigation of all incisions,followed by skin closure using 3-0 Vicryl then 4-0 Monocryl of all trocar site incisions. infiltration of local lidocaine 1% was done to all incision sites.Dry dressing was applied. Count was completed at the end of the procedure for [place],sponges and instruments. Patient tolerated the procedure well and was transferred to the recovery area after extubation. I was present for the whole entire procedure
--- NOTE | 2022-05-07 16:09 | PC.NURSE ---
Spoke with who gave verbal orders to test a PTT at 7 pm and then restart the Heparin drip off that PTT and not to give any bolus the first time and follow the Heparin protocol after that. Later orders received from to restart patient's Heparin drip at 10 pm tonight. Called and spoke to Dr. Winter to clarify what orders to follow. Dr. Winter gave orders to restart the drip at 10 pm.
[2022-05-07] MEDS: montelukast sodium 10 mg Tablet PO (17:56)
[2022-05-07 21:19] LABS: Partial Thromboplastin Time 26.4 SECONDS (23.9-36.7)
[2022-05-08] VITALS (9 sets, daily range): BP systolic 103–124; BP diastolic 63–77; PULSE 54–71; RESP 14–21; TEMP 36.4–36.7; O2SAT 94–100
[2022-05-08 04:53] LABS: Basophils % 0.2 %; Hematocrit 42.1 % (37.0-47.0); Hemoglobin 13.2 g/dL (11.5-15.3); Lymphocytes % 16.8 %; Mean Corpuscular HGB Conc 31.4 g/dL (30.0-36.0); Mean Corpuscular Volume 101.9 fl (81-99); Mean Platelet Volume 10.9 fL (7.4-10.4); Monocytes # 0.3 10^3/uL (0.2-0.9); Monocytes % 4.2 %; Neutrophils # 4.69 10^3/uL (1.8-7.7); Neutrophils % 78.5 %; Nucleated Red Blood Cells % 0 %; Platelet Count 185 10^3/cmm (130-400); Red Blood Count 4.13 10^6/uL (4.1-5.3); Red Cell Distribution Width 11.4 % (12.1-15.1)
[2022-05-08 05:18] LABS: Partial Thromboplastin Time 88.2 SECONDS (23.9-36.7)
[2022-05-08 05:19] LABS: Alanine Aminotransferase 14 U/L (0-33); Albumin Level 3.4 g/dL (3.5-5.2); Alkaline Phosphatase 91 U/L (35-105); Anion Gap 18.3 (5-19); Aspartate Amino Transferase 13 U/L (0-32); Blood Urea Nitrogen 7 mg/dL (6-20); Calcium 9.1 mg/dL (8.5-10.5); Carbon Dioxide 18 mmol/L (22-29); Chloride 103 mmol/L (98-107); Creatinine Clr Calc Pharmacy 244.7649; Globulin 3.4 g/dL (1.3-4.6); Glomerular Filtration Rate 178.6 mL/min (90-130); Glucose 103 mg/dL (65-115); Osmolality Calculated 278 mOsm/kg (285-295); Potassium 4.3 mmol/L (3.5-5.1); Sodium 135 mmol/L (136-145); Total Bilirubin 0.8 mg/dL (0.15-1.2); Total Protein 6.8 g/dL (6.6-8.7)
[2022-05-08] MEDS: lactated ringers 1,000 ML 100 ML IV ×2 (05:38→15:29)
[2022-05-08] MEDS: piperacillin-tazobactam 3.375 GM in sodium chloride 0.9% (plus) 50 ML IV ×3 (05:41→17:11)
--- NOTE | 2022-05-08 06:01 | PC.NURSE ---
Pt c/o abd pain, however she con't to refuse pain medications at this time. Pt has ambulated around the nurses stations x3 this am.
--- NOTE | 2022-05-08 06:17 | PC.NURSE ---
Dr. Aleman here to see pt to eval surgery site. Pt still needs to have flatulace prior to discharge. Physician discussed w/pt lifting restrictions upon discharge, f/u appt, and concerns. Pt stated understanding.
--- NOTE | 2022-05-08 06:48 | PM.PN ---
Subjective Subjective: Overall patient feels better. Has been therapeutic on heparin drip. Did not pass gas yet. Medications: Reviewed: Yes Vitals/I&O/Wt Last Vital Signs Temp 97.5 F L 05/08/22 04:00 Pulse 54 L 05/08/22 04:00 Resp 21 H 05/08/22 04:00 BP 124/73 05/08/22 04:00 Pulse Ox 97 05/08/22 04:00 O2 Del Method 05/07/22 22:01 O2 Flow Rate 6 05/07/22 14:48 05/07/22 05/07/22 05/08/22 14:59 22:59 06:59 Intake Total 1050 / 1050 820 / 1870 1400 / 3270 Output Total 350 / 355 700 / 1055 Balance 1045 / 1045 470 / 1515 700 / 2215 Weight last 48 hrs Weight 179 lb 4 oz Physical Exam Narrative: Patient is conscious alert oriented X3 No apparent distress BMI 36.2 Head and neck examination PERRLA no masses no cervical lymphadenopathy no jaundice Cardiac examination audible S1-S2 no murmurs no gallops no arrhythmias Chest is clear bilateral,abscence of Rhonchi or wheezes,no surgical emphysema Abdomen nontender except at the incision sites nondistended soft no organomegaly guarding or rigidity/no signs of peritonitis Extremities no cyanosis no clubbing no edema Data : 05/08/22 04:18 05/08/22 04:18 A&P Assessment and plan (1) Status post appendectomy: Assessment This is a pleasant 56 years old female patient status post laparoscopic appendectomy 05/07/2022 Plan Encourage ambulation Once patient starts passing gas we will advance diet as tolerated From surgical standpoint of view patient can be discharged home after passing gas and resume Xarelto as an outpatient Return to surgery office in 1 week Assurance and education All questions have been answered and all concerns have been addressed to patient's satisfaction. Attestations Medical Necessity Statement*: Per admitting service Coding Level of Care Code Acute Sales Team Member for [facility] Fwd Diagnoses Status post appendectomy Z90.49
[2022-05-08] MEDS: budesonide 0.5 mg/2 mL Neb INHALATION (07:43)
[2022-05-08] MEDS: ondansetron 2 mg/ML SDV 2 mL 4 MG IVP (08:13)
[2022-05-08] MEDS: pantoprazole 40 mg SDV IVP (08:13)
[2022-05-08] MEDS: acetaminophen 325 mg Tablet 650 MG PO ×3 (08:19→19:39)
[2022-05-08 10:10] LABS: Iron 47 ug/dL (37-145); Percent Saturation 18.3 % (20-50); Total Iron Binding Capacity 256 mcg/dl; Unsaturated Iron Binding 209 ug/dL (112-347)
[2022-05-08 10:21] LABS: Thyroid Stimulating Hormone 0.64 uIU/mL (0.27-4.20)
[2022-05-08 11:19] LABS: Partial Thromboplastin Time 67.7 SECONDS (23.9-36.7)
[2022-05-08] MEDS: alum-mag-hydroxide-sime 30 mL UDC PO (11:25)
[2022-05-08] MEDS: heparin drip 25,000 UNIT/500 ML PREMIX 24 UNIT IV (15:30)
[2022-05-08] MEDS: glycerin adult supp 1 EACH PR (16:31)
[2022-05-08] MEDS: docusate sodium 100 mg Capsule PO (16:31)
--- NOTE | 2022-05-08 17:15 | PM.PN ---
Subjective Subjective: No acute events overnight. Tolerated the surgery well yesterday. Denies any nausea, vomiting, headache. Complaining of upper abdominal crampy pain. Awaiting passing of flatus before discharge as per surgery. Patient is walking around the halls without any difficulty. Has been maintained on heparin drip. No episodes of bleeding. Hemoglobin has remained stable. Medications: Reviewed: Yes Vitals/I&O/Wt Last Vital Signs Temp 97.8 F 05/08/22 15:44 Pulse 68 05/08/22 16:37 Resp 16 05/08/22 16:37 BP 113/73 05/08/22 15:44 Pulse Ox 96 05/08/22 16:37 O2 Del Method 05/08/22 15:44 O2 Flow Rate 6 05/07/22 14:48 05/08/22 05/08/22 05/08/22 06:59 14:59 22:59 Intake Total 1400 / 3270 290 / 290 1451 / 1741 Output Total 700 / 1055 Balance 700 / 2215 290 / 290 1451 / 1741 Weight last 48 hrs Weight 81.306 kg Physical Exam Narrative: Patient is conscious alert oriented X3 No apparent distress BMI 36.2 Head and neck examination PERRLA no masses no cervical lymphadenopathy no jaundice Cardiac examination audible S1-S2 no murmurs no gallops no arrhythmias Chest is clear bilateral,abscence of Rhonchi or wheezes,no surgical emphysema Abdomen nontender except at the incision sites nondistended soft no organomegaly guarding or rigidity/no signs of peritonitis Extremities no cyanosis no clubbing no edema Data : 05/08/22 04:18 05/08/22 04:18 A&P Assessment and plan (1) Acute appendicitis: Postoperative day 1. Continue with empiric Zosyn for now. Bowel regimen, diet as per surgical team. Awaiting passing of flatus prior to discharge. (2) Cholestasis: Entire right side abdominal pain, including right upper quadrant. Gallbladder appeared normal on CT. acute pathology ruled out on ultrasound gallbladder. (3) Factor V deficiency: (4) Status post appendectomy: Plan Factor V Leiden deficiency, history of 5 PEs, IVC filter: Takes Xarelto at home. Continue with heparin drip. Plan to continue heparin drip prior to discharge. Patient can continue with Xarelto at home once discharged. Okay with surgery. Asthma: Albuterol nebs as needed. Reports has been well controlled with Nucala. GERD: Pantoprazole Attestations Medical Necessity Statement*: Requires further hospitalization for a patient who is postoperative day 1 for acute appendicitis while we await bowel functions to resume. Time Spent in Patient Care: Greater than 35 minutes Coding Level of Care Code Acute Specialty Manufacturing Supervisor for [facility] Fwd Diagnoses Acute appendicitis K35.80 Cholestasis K83.1 Factor V deficiency D68.2 Status post appendectomy Z90.49
[2022-05-08 18:06] LABS: Partial Thromboplastin Time 57.6 SECONDS (23.9-36.7)
--- NOTE | 2022-05-08 18:44 | PC.NURSE ---
Pt discussion regarding driving home at time of discharge, discussed with Dr. Fairbanks who does not recommend patient driving this soon after surgery, if patient decided to drive it would be her own responsibility, it is not recommend by . Patient educated and updated and verbalizes understanding.
--- NOTE | 2022-05-08 19:53 | PC.NURSE ---
REPORT TAKEN FROM KEITH BARRY. PATIENT A&O, VSS, NO FURTHER NEEDS AT THIS TIME. PATIENT REPORTS WALKING FREQUENTLY, SITTING UP IN CHAIR, AND ACKNOWLEDGES NEED TO GET UP AND MOVE AROUND. BOWELS HYPOACTIVE, NO REPORT FROM PATIENT OF PASSING FLATULENCE OR BM. LAST BM REPORTED FROM PATIENT TO BE 05/07 PRIOR TO SURGERY. PATIENT SIPPING ON BROTH AND PLANS ON EATING JELLO.
[2022-05-09] VITALS (7 sets, daily range): BP systolic 103–130; BP diastolic 60–82; PULSE 53–63; RESP 14–20; TEMP 36.6–36.8; O2SAT 93–97
--- NOTE | 2022-05-09 00:16 | PC.NURSE ---
PTT RESULTS RECEIVED, NO CHANGE ON HEPARIN FLOW SHEET PROTOCOL. PTT SCHEDULED TO BE CHECKED IN 6 HOURS.
[2022-05-09] MEDS: lactated ringers 1,000 ML 100 ML IV (01:32)
[2022-05-09] MEDS: piperacillin-tazobactam 3.375 GM in sodium chloride 0.9% (plus) 50 ML IV ×2 (02:10→08:22)
[2022-05-09 05:58] LABS: Basophils % 0.4 %; Eosinophils % 0.2 %; Hematocrit 34.2 % (37.0-47.0); Hemoglobin 11.3 g/dL (11.5-15.3); Lymphocytes # 2.5 10^3/uL (0.8-4.8); Lymphocytes % 55.2 %; Mean Corpuscular Hemoglobin 32.5 pg (28.0-34.0); Mean Corpuscular Volume 98.3 fl (81-99); Mean Platelet Volume 11.2 fL (7.4-10.4); Monocytes # 0.4 10^3/uL (0.2-0.9); Neutrophils # 1.59 10^3/uL (1.8-7.7); Neutrophils % 34.8 %; Nucleated Red Blood Cells % 0 %; Platelet Count 145 10^3/cmm (130-400); Red Blood Count 3.48 10^6/uL (4.1-5.3); Red Cell Distribution Width 11.9 % (12.1-15.1); White Blood Count 4.6 10^3/uL (4.0-10.0)
--- NOTE | 2022-05-09 06:03 | PC.NURSE ---
DR LION CALLED FOR UPDATE ON PATIENT. THIS NURSE INFORMED DR THAT PATIENT KEEPS STATING CONCERN ABOUT BLOATING AND INABILITY TO PASS GAS/HAVE BM, DR LION STATED THAT IT IS NORMAL AND WILL ROUND ON PATIENT LATER. PATIENT INFORMED OF CONVERSATION.
[2022-05-09 06:15] LABS: Partial Thromboplastin Time 67.9 SECONDS (23.9-36.7)
[2022-05-09 06:37] LABS: Alanine Aminotransferase 11 U/L (0-33); Albumin Level 3.3 g/dL (3.5-5.2); Alkaline Phosphatase 77 U/L (35-105); Anion Gap 14.5 (5-19); Aspartate Amino Transferase 12 U/L (0-32); Blood Urea Nitrogen 6 mg/dL (6-20); Calcium 8.6 mg/dL (8.5-10.5); Carbon Dioxide 25 mmol/L (22-29); Chloride 105 mmol/L (98-107); Globulin 2.7 g/dL (1.3-4.6); Glomerular Filtration Rate 138.1 mL/min (90-130); Glucose 78 mg/dL (65-115); Osmolality Calculated 288 mOsm/kg (285-295); Potassium 3.5 mmol/L (3.5-5.1); Sodium 141 mmol/L (136-145); Total Bilirubin 0.5 mg/dL (0.15-1.2)
--- NOTE | 2022-05-09 06:56 | PM.PN ---
Subjective Subjective: Patient overall is doing well ,did not pass gas yet. Continues to have stable vital signs and appropriate blood work. Adequate urine output. Heparin drip on board. Medications: Reviewed: Yes Vitals/I&O/Wt Last Vital Signs Temp 98.3 F 05/09/22 03:42 Pulse 58 L 05/09/22 03:42 Resp 16 05/09/22 03:42 BP 116/73 05/09/22 03:42 Pulse Ox 95 05/09/22 03:42 O2 Del Method 05/09/22 03:42 O2 Flow Rate 6 05/07/22 14:48 05/08/22 05/08/22 05/09/22 14:59 22:59 06:59 Intake Total 290 / 290 2745 / 3035 1240 / 4275 Output Total 1500 / 1500 500 / 2000 Balance 290 / 290 1245 / 1535 740 / 2275 Physical Exam Narrative: Patient is conscious alert oriented X3 No apparent distress BMI 36.2 Head and neck examination PERRLA no masses no cervical lymphadenopathy no jaundice Abdomen nontender except mildly at the incision sites nondistended soft no organomegaly guarding or rigidity/no signs of peritonitis Extremities no cyanosis no clubbing no edema Data : 05/09/22 05:28 05/09/22 05:28 A&P Assessment and plan (1) Status post appendectomy: Assessment This is a pleasant 56 years old female patient status post laparoscopic appendectomy 05/07/2022 Plan Encourage ambulation We will give the patient some prune juice From surgical standpoint of view patient can be discharged home after passing gas and resume Xarelto as an outpatient Return to surgery office in 1 week Assurance and education All questions have been answered and all concerns have been addressed to patient's satisfaction. Attestations Medical Necessity Statement*: Per admitting service Coding Level of Care Code Acute Laminating Machine Tender for [facility] Epperson Diagnoses Status post appendectomy Z90.49
[2022-05-09] MEDS: docusate sodium 100 mg Capsule PO ×2 (08:22→17:51)
[2022-05-09] MEDS: pantoprazole 40 mg SDV IVP (08:22)
[2022-05-09] MEDS: rivaroxaban 10 mg Tablet 20 MG PO (10:15)
[2022-05-09] MEDS: lactated ringers 1,000 ML 50 ML IV (10:17)
--- NOTE | 2022-05-09 13:02 | PM.PN ---
Subjective Subjective: No events overnight. Patient awaiting bowel functions. Denies any nausea vomiting, headache. Has remained hemodynamically stable and afebrile. Medications: Reviewed: Yes Vitals/I&O/Wt Last Vital Signs Temp 98.0 F 05/09/22 11:07 Pulse 56 L 05/09/22 11:07 Resp 20 H 05/09/22 11:07 BP 130/77 05/09/22 11:07 Pulse Ox 93 05/09/22 11:07 O2 Del Method 05/09/22 11:07 O2 Flow Rate 6 05/07/22 14:48 05/08/22 05/09/22 05/09/22 22:59 06:59 14:59 Intake Total 2745 / 3035 1524.5 / 4559.5 1241.458 / 1241.458 Output Total 1500 / 1500 500 / 2000 400 / 400 Balance 1245 / 1535 1024.5 / 2559.5 841.458 / 841.458 Physical Exam Narrative: Patient is conscious alert oriented X3 No apparent distress BMI 36.2 Head and neck examination PERRLA no masses no cervical lymphadenopathy no jaundice Cardiac examination audible S1-S2 no murmurs no gallops no arrhythmias Chest is clear bilateral,abscence of Rhonchi or wheezes,no surgical emphysema Abdomen nontender except at the incision sites nondistended soft no organomegaly guarding or rigidity/no signs of peritonitis Extremities no cyanosis no clubbing no edema Data : 05/09/22 05:28 05/09/22 05:28 A&P Assessment and plan (1) Acute appendicitis: Postoperative day 1. Continue with empiric Zosyn for now. Bowel regimen, diet as per surgical team. Awaiting passing of flatus prior to discharge. (2) Cholestasis: Entire right side abdominal pain, including right upper quadrant. Gallbladder appeared normal on CT. acute pathology ruled out on ultrasound gallbladder. (3) Factor V deficiency: (4) Status post appendectomy: Plan Factor V Leiden deficiency, history of 5 PEs, IVC filter: Takes Xarelto at home. Continue with heparin drip. Plan to continue heparin drip prior to discharge. Patient can continue with Xarelto at home once discharged. Okay with surgery. Asthma: Albuterol nebs as needed. Reports has been well controlled with Nucala. GERD: Pantoprazole Plan for the day: Stop IV antibiotics. Stop heparin drip and switch to Xarelto at home dose. Stop IV fluids. Encourage oral diet. Bowel regimen as per surgical team. Continue ambulation. Attestations Medical Necessity Statement*: Requires further hospitalization in a patient post appendectomy while bowel functions are awaited prior to discharge Time Spent in Patient Care: 16 - 35 minutes Coding Level of Care Code Acute Door To Door Salesperson for [facility] Fwd Diagnoses Acute appendicitis K35.80 Cholestasis K83.1 Factor V deficiency D68.2 Status post appendectomy Z90.49
[2022-05-09] MEDS: lactulose oral liq 20 gm/30 mL UDC 30 GM PO (14:28)
[2022-05-09] MEDS: acetaminophen 325 mg Tablet 650 MG PO (15:03)
--- NOTE | 2022-05-09 18:01 | PC.NURSE ---
PATIENT HAS AMBULATED THE HALLS SEVERAL TIMES TODAY. TOLERATING CLEAR LIQUIDS. STARTED XARELTO BACK TODAY. ACTIVE BOWEL SOUNDS, NO NAUSEA, NOT PASSING FLATUS AT THIS TIME. CONTINUE TO MONITOR.
--- NOTE | 2022-05-09 19:04 | PC.NURSE ---
BEDSIDE REPORT TAKEN FROM ROSEMARIE BARRY. PATIENT RESTING IN BED, A&O, VSS. PLANS DISCUSSED FOR PATIENT TO D/C TOMORROW. PATIENT REPORTED NO NEEDS AT THIS TIME.
[2022-05-10] VITALS: BP 93/58; PULSE 69; RESP 161; TEMP 36.7; O2SAT 94
[2022-05-10 01:57] LABS: Basophils % 0.2 %; Eosinophils % 0.6 %; Hematocrit 35.9 % (37.0-47.0); Lymphocytes # 2.4 10^3/uL (0.8-4.8); Lymphocytes % 45.5 %; Mean Corpuscular HGB Conc 33.4 g/dL (30.0-36.0); Mean Corpuscular Volume 95.7 fl (81-99); Mean Platelet Volume 10.9 fL (7.4-10.4); Monocytes # 0.6 10^3/uL (0.2-0.9); Monocytes % 10.9 %; Neutrophils # 2.23 10^3/uL (1.8-7.7); Neutrophils % 42.6 %; Nucleated Red Blood Cells % 0 %; Platelet Count 164 10^3/cmm (130-400); Red Blood Count 3.75 10^6/uL (4.1-5.3); Red Cell Distribution Width 11.6 % (12.1-15.1); White Blood Count 5.2 10^3/uL (4.0-10.0)
[2022-05-10 02:28] LABS: Alanine Aminotransferase 15 U/L (0-33); Albumin Level 3.4 g/dL (3.5-5.2); Alkaline Phosphatase 75 U/L (35-105); Anion Gap 14.3 (5-19); Aspartate Amino Transferase 16 U/L (0-32); Blood Urea Nitrogen 5 mg/dL (6-20); Calcium 8.8 mg/dL (8.5-10.5); Carbon Dioxide 26 mmol/L (22-29); Chloride 104 mmol/L (98-107); Globulin 2.9 g/dL (1.3-4.6); Glomerular Filtration Rate 138.1 mL/min (90-130); Glucose 77 mg/dL (65-115); Osmolality Calculated 288 mOsm/kg (285-295); Potassium 3.3 mmol/L (3.5-5.1); Sodium 141 mmol/L (136-145); Total Bilirubin 0.7 mg/dL (0.15-1.2); Total Protein 6.3 g/dL (6.6-8.7)
[2022-05-10 03:37] VITALS: BP 98/56; PULSE 62; RESP 17; TEMP 36.6; O2SAT 95
--- NOTE | 2022-05-10 06:09 | PC.NURSE ---
DR LION CALLED ASKING FOR PATIENT UPDATES. THIS NURSE INFORMED DR LION THAT PATIENT HAD NOT PASSED ANY GAS OR HAD ANY BM. DR LION INSTRUCTED TO ADMINISTER SUPPOSITORY.
[2022-05-10] MEDS: glycerin adult supp 1 EACH PR (06:29)
[2022-05-10] MEDS: acetaminophen 325 mg Tablet 650 MG PO (06:43)
--- NOTE | 2022-05-10 06:57 | PM.PN ---
Subjective Subjective: Patient overall tolerating p.o. intake but she does not feel that she passed gas yet. Vital signs are stable and lab values are unremarkable except for potassium of 3.3. And albumin of 3.4 Medications: Reviewed: Yes Vitals/I&O/Wt Last Vital Signs Temp 97.9 F 05/10/22 03:37 Pulse 62 05/10/22 03:37 Resp 17 05/10/22 03:37 BP 98/56 05/10/22 03:37 Pulse Ox 95 05/10/22 03:37 O2 Del Method 05/10/22 03:37 O2 Flow Rate 6 05/07/22 14:48 05/09/22 05/09/22 05/10/22 14:59 22:59 06:59 Intake Total 1361.458 / 1361.458 240 / 1601.458 200 / 1801.458 Output Total 400 / 400 Balance 961.458 / 961.458 240 / 1201.458 200 / 1401.458 Physical Exam Narrative: Patient is conscious alert oriented X3 No apparent distress BMI 36.2 Head and neck examination PERRLA no masses no cervical lymphadenopathy no jaundice Abdomen nontender except at the incision sites nondistended soft no organomegaly guarding or rigidity/no signs of peritonitis. Bowel sounds are positive Extremities no cyanosis no clubbing no edema Data : 05/10/22 01:38 05/10/22 01:38 A&P Assessment and plan (1) Status post appendectomy: Assessment This is a pleasant 56 years old female patient status post laparoscopic appendectomy 05/07/2022 Plan Encourage ambulation Incentive spirometer every hour Patient was educated about the importance of bowel activity. And to stay on stool softeners. Glycerin suppository was given by the nursing staff this morning pending results. Continue Xarelto Return to surgery office in 1 week Assurance and education All questions have been answered and all concerns have been addressed to patient's satisfaction. Attestations Medical Necessity Statement*: Per admitting service Coding Level of Care Code Acute Director Of Pupil Personnel Program for [facility] Fwd Diagnoses Status post appendectomy Z90.49
--- NOTE | 2022-05-10 07:30 | PC.NURSE ---
BEDSIDE REPORT GIVEN TO KEITH BARRY AND MARÍA JOURNEYMAN MOLDER. PATIENT RESTING IN BED, NO FURTHER NEEDS AT THIS TIME.
[2022-05-10 07:43] VITALS: BP 92/57; PULSE 63; RESP 16; TEMP 36.8; O2SAT 95
--- NOTE | 2022-05-10 08:14 | P.DS_ITS ---
Discharge Providers Date of Admission: 05/07/22 01:42 Date of Discharge: May 10, 2022 Attending Provider at Admission: Placido Fishman Attending Provider at Discharge: Cricket Li MD Consults: Surgery: Dr. Aleman Diagnoses at Discharge Discharge Diagnosis (1) Status post appendectomy: Status: Acute Reason for Visit Reason for Visit: abd pain Brief History: History as per HPI: Pleasant 36-year-old lady with history of factor V Leiden deficiency, history of PE x5, on chronic anticoagulation with Xarelto, last dose was 05/05 at 8 PM, history of IVC filter, history of asthma well-controlled with Nucala, history of gastric sleeve surgery, lives in [place], was here with her son hunting in the area, since the morning started having right lower quadrant abdominal discomfort, although states has not had very good appetite over several days.? Has been afebrile.? No vomiting or diarrhea.? In ER with noted right flank pain.? Noted mild ovation of T bili 1.3, alk phos mildly elevated 109.? Transaminases normal.? UA with mild normality there-4 RBC, 510 WBC, but also 5- 10 squamous Pelo cells.? 2+ mucus.? 1+ ketones.? 1+ bilirubin.? Urobilinogen 4 mg/dL. Contrast CT abdomen pelvis with noted mild to moderate retrocecal appendicitis without abscess or perforation.? IVC filter in place. Hospital Course Hospital Course Patient was admitted to hospital further evaluation and management of appendi citis. She was started on a heparin drip for history of factor V [place] and Xarelto was withheld. She underwent laparoscopic appendectomy on 05/07. She tolerated the procedure well. Her hospital stay was prolonged as we were awaiting bowel functions. Otherwise her hospital stay was unremarkable. She is been discharged in medically stable condition on bowel regimen with advised to follow-up with her primary care provider and surgery within next 1 week. Physical Exam Narrative: Patient is conscious alert oriented X3 No apparent distress BMI 36.2 Head and neck examination PERRLA no masses no cervical lymphadenopathy no jaundice Cardiac examination audible S1-S2 no murmurs no gallops no arrhythmias Chest is clear bilateral,abscence of Rhonchi or wheezes,no surgical emphysema Abdomen nontender except at the incision sites nondistended soft no organomegaly guarding or rigidity/no signs of peritonitis Extremities no cyanosis no clubbing no edema Discharge Data Studies Completed and Pending Completed Studies During Hospitalization Category Date Time Status CT abdomen pelvis w con* [id number] Stat Cat Scan 05/06/22 22:56 Completed Pathology: Surgical [PTH] Routine Pth 05/07/22 14:12 Completed US gall bladder [id number] Routine Ultrasound 05/07/22 02:23 Completed Pending at discharge Category Date Time Status ES surgery / GI images Routine Exams 05/07/22 13:18 Taken Platelet Count Q2D Lab 05/11/22 04:00 Ordered Radiology Impressions Abdomen/Pelvis CT 05/06/22 22:56 IMPRESSION: 1. IVC filter. 2. [id number] retrocecal appendicitis without abscess or perforation. COMMENTS: For patients with an IVC filter, recommend assessment for a management plan for the patient's IVC filter. If there is no established management plan, recommend referral to an interventional clinician on a nonemergent basis for evaluation. ADDENDUM: 05/07/22 0009 THIS REPORT CONTAINS FINDINGS THAT MAY BE CRITICAL TO PATIENT CARE. The findings were verbally communicated via telephone conference with Dr. Arciniega at 12:07 AM CDT on 05/07/2022. The findings were acknowledged and understood. Gallbladder Ultrasound 05/07/22 02:23 IMPRESSION: 1. Fatty infiltration of the liver. 2. Normal gallbladder. Laboratory Results WBC 5.2 10^3/uL (4.0-10.0) 05/10/22 01:38 RBC 3.75 10^6/uL (4.1-5.3) L 05/10/22 01:38 Hgb 12.0 g/dL (11.5-15.3) 05/10/22 01:38 Hct 35.9 % (37.0-47.0) L 05/10/22 01:38 MCV 95.7 fl (81-99) 05/10/22 01:38 MCH 32.0 pg (28.0-34.0) 05/10/22 01:38 MCHC 33.4 g/dL (30.0-36.0) 05/10/22 01:38 RDW 11.6 % (12.1-15.1) L 05/10/22 01:38 Plt Count 164 10^3/cmm (130-400) 05/10/22 01:38 MPV 10.9 fL (7.4-10.4) H 05/10/22 01:38 Neut % (Auto) 42.6 % 05/10/22 01:38 Lymph % (Auto) 45.5 % 05/10/22 01:38 [place] % (Auto) 10.9 % 05/10/22 01:38 Eos % (Auto) 0.6 % 05/10/22 01:38 Baso % (Auto) 0.2 % 05/10/22 01:38 Neut # (Auto) 2.23 10^3/uL (1.8-7.7) 05/10/22 01:38 Lymph # (Auto) 2.4 10^3/uL (0.8-4.8) 05/10/22 01:38 [place] # (Auto) 0.6 10^3/uL (0.2-0.9) 05/10/22 01:38 Eos # (Auto) 0.0 10^3/uL (0.0-0.8) 05/10/22 01:38 Baso # (Auto) 0.0 10^3/uL (0.0-0.1) 05/10/22 01:38 Nucleated RBC % (auto) 0 % 05/10/22 01:38 Nucleated RBCs # 0.0 /100WBC 05/10/22 01:38 PT 15.70 SECONDS (12.1-14.9) H 05/07/22 09:30 INR 1.22 (0.8-1.2) H 05/07/22 09:30 APTT 67.9 SECONDS (23.9-36.7) H 05/09/22 05:28 Sodium 141 mmol/L (136-145) 05/10/22 01:38 Potassium 3.3 mmol/L (3.5-5.1) L 05/10/22 01:38 Chloride 104 mmol/L (98-107) 05/10/22 01:38 Carbon Dioxide 26 mmol/L (22-29) 05/10/22 01:38 Anion Gap 14.3 (5-19) 05/10/22 01:38 BUN 5 mg/dL (6-20) L 05/10/22 01:38 Creatinine 0.5 mg/dL (0.5-0.9) 05/10/22 01:38 GFR Calculation 138.1 mL/min (90-130) H 05/10/22 01:38 Glucose 77 mg/dL (65-115) 05/10/22 01:38 Calculated Osmolality 288 mOsm/kg (285-295) 05/10/22 01:38 Calcium 8.8 mg/dL (8.5-10.5) 05/10/22 01:38 Iron 47 ug/dL (37-145) 05/08/22 04:18 TIBC 256 mcg/dl 05/08/22 04:18 % Saturation 18.3 % (20-50) L 05/08/22 04:18 Unsat Iron Binding 209 ug/dL (112-347) 05/08/22 04:18 Total Bilirubin 0.7 mg/dL (0.15-1.2) 05/10/22 01:38 AST 16 U/L (0-32) 05/10/22 01:38 ALT 15 U/L (0-33) 05/10/22 01:38 Alkaline Phosphatase 75 U/L (35-105) 05/10/22 01:38 Total Protein 6.3 g/dL (6.6-8.7) L 05/10/22 01:38 Albumin 3.4 g/dL (3.5-5.2) L 05/10/22 01:38 Globulin 2.9 g/dL (1.3-4.6) 05/10/22 01:38 Lipase 36 U/L (13-60) 05/06/22 21:45 TSH 0.64 uIU/mL (0.27-4.20) 05/08/22 04:18 HCG, Qual Negative (Negative) 05/06/22 21:45 Urine Color Yellow (Yellow) 05/07/22 12:10 Urine Appearance Hazy (CLEAR) A 05/07/22 12:10 Urine pH 7 (5-7) 05/07/22 12:10 Ur Specific [place] 1.015 (1.005-1.030) 05/07/22 12:10 Urine Protein Neg (Negative) 05/07/22 12:10 Urine Glucose (UA) Norm (Normal) 05/07/22 12:10 Urine Ketones 2+ (Negative) H 05/07/22 12:10 Urine Blood Neg (Negative) 05/07/22 12:10 Urine Nitrate Negative (Negative) 05/07/22 12:10 Urine Bilirubin Neg (Negative) 05/07/22 12:10 Urine Urobilinogen 1 mg/dL (Negative) H 05/07/22 12:10 Ur Leukocyte Esterase Negative (Negative) 05/07/22 12:10 Urine RBC None /hpf (0-2) 05/07/22 12:10 Urine WBC None /hpf (0-5) 05/07/22 12:10 Ur Squamous Epith Cells 0-4 /hpf (0-5) H 05/07/22 12:10 Amorphous Sediment 3+ /hpf 05/07/22 12:10 Urine Bacteria Trace /hpf (NONE) 05/07/22 12:10 Urine Mucus 2+ /hpf 05/06/22 21:15 Blood Type A Positive 05/07/22 09:30 Rho(D) Type Positive 05/07/22 09:30 Antibody Screen Negative 05/07/22 09:30 Vitals Last Vital Signs Temp 98.3 F 05/10/22 07:43 Pulse 63 05/10/22 07:43 Resp 16 05/10/22 07:43 BP 92/57 05/10/22 07:43 Pulse Ox 95 05/10/22 07:43 O2 Del Method 05/10/22 07:43 O2 Flow Rate 6 05/07/22 14:48 Discharge Plan Discharge Patient Disposition: Home Condition: Stable Prescriptions: New docusate sodium 100 mg Capsule 100 mg PO BID Qty: 20 0RF Milk of Magnesia 400 mg/5 mL suspension 5 ml PO DAILY PRN (Reason: constipation) Qty: 355 0RF Continued Xarelto 20 mg tablet 1 tab PO BEDTIME fexofenadine 180 mg Tablet 180 mg PO DAILY Protonix 20 mg Tablet,Delayed Release (Dr/Ec) 20 mg PO DAILY Singulair 10 mg Tablet 10 mg PO QPM Symbicort 160-4.5 mcg/actuation Hfa Aerosol Inhaler 2 puff INHALATION BID Centrum Silver Women 8 mg iron-400 mcg-300 mcg Tablet 1 tab PO BID Nucala 100 mg/mL Auto-Injector 100 mg SUBCUT DIRECTED Ventolin HFA 90 mcg inhaler 2 actuation PO Q5MIN PRN (Reason: Shortness Of Breath Or Wheezing) Discharge Orders: Discharge Order (Routine); Ordered 05/10/22 Ordered By: Cricket Li Referrals: Peter Aleman MD [Physician] - 05/17/22 10:30 am (Return to surgery office in 1 week) Discharge Diet: Advance as tolerated and Clear Liquid Discharge Activity: Increase activity as tolerated Patient Instructions: Laxative, Stool Softeners (By mouth), Magnesium Hydroxide (By mouth), Abdominal Pain (ED), Laparoscopic Appendectomy (GEN), Opioid Safety, Post Anesthesia Care, Pain Management Activity Restrictions/Additional Instructions: Please follow-up with a primary care provider. Return to the emergency department for worsening symptoms or anything else that you are concerned about a feel needs emergency department evaluation. Postop instructions: 1. Patient can shower after 48 hours from surgery 2. Remove Dermabond 7 to 10 days after surgery, if there is a secondary dressing can take down after 48 hours. 3. Up and walking as tolerated 4. Do not lift more than 5 pounds first 2 weeks after surgery and not more than 25 pounds 6 to 8 weeks after surgery. 5. Do not operate heavy machinery or drive while using pain medications. 6.Contact the office or return to the ER for worsening nausea vomiting fevers or chills, or noticing any redness around incision sites or discharge. 7. Avoid constipation Discharge Attestations Time Spent in Discharge Care*: greater than 30 min Specific Discharge Activities: educating patient, discussing with pcp/other providers, discussing with home health care case manager/social workers/dc planners, documenting/other paperwork and evaluating patient/reviewing data Status at Discharge: Cognitive status at discharge: cognitively intact , Behavioral status at discharge: cooperative , Functional status at discharge: independent ambulation , Overall status at discharge: patient is back to baseline Quality Metrics Clinical Quality Measures [ No reported AMI, CVA or VTE this stay] Coding Level of Care Code Acute Chg FW DC note Diagnoses Status post appendectomy Z90.49
[2022-05-10 08:56] VITALS: PULSE 63; RESP 16; O2SAT 95
--- NOTE | 2022-05-10 09:03 | PC.CHAP ---
Pastoral Care Encounter/Spiritual Assessment Type of Contact [] Declined steward/stewardess chief cargo vessel visit [] Patient/Family/Request visit [] Outpatient visit [] Follow-up visit [] Physician referral [] Code/Alert [x] Routine visit [] Staff referral [] Actively dying [] Patient sleeping [] Family support [] [] Out of room [] Palliative care [] [] Receiving care in room [] Pre-surgical visit [] Trauma [] Long length of stay [] ICU visit [] Other: Relational/Emotional Strength [x] Patient feels connected with others/family/visitors/staff [] Distress [] Loneliness/isolation [] Abandonment Spirituality of Patient [x] Person of Sophia [] Attends Shinto of their Sophia [x] Believes in Prayer [] Reads Bible or Christian materials [] There are Spiritual issues to be addressed Building Contractor Interventions [x] Prayer [x] Active listening [x] Non-anxious presence [x] Spiritual/emotional support [] Crisis/trauma care [] Spiritual counseling [] Bereavement support [] Provided bereavement packet [] Provided Bible/devotional materials [] Provided toy/stuffed animal, coloring book to patient or family member [] Provided Communion [] Anointing/[place] [] Salvation [x] Completed spiritual assessment [] Other: Impact on Illness or Injury [] Angry [] Fearful [] Anxious [] Often cries [] Exhaustion [] Unable to work [] Unable to attend roman catholic [] Unable to walk/stand [] Unable to read [] Unable to drive [] Unable to eat/drink [] Unable to sleep [] Unable to be with family [] Patient intubated [] Other: Summary Pt dressed and sitting in a chair. She is waiting for the discharge paperwork and the OK to leave the hospital and go home. She plans to drive the 3 1/2 hour trip on her own. Will take her time and rest as needed. She has three teenage boys at home and a 21 year old son. She had came to this area to participate in the [employer] [place] over the weekend and ended up having a medical issue. Time spent with patient 15m
[2022-05-10] MEDS: docusate sodium 100 mg Capsule PO (10:58)
[2022-05-10] MEDS: rivaroxaban 10 mg Tablet 20 MG PO (10:59)
[2022-05-10] MEDS: pantoprazole 40 mg SDV IVP (11:00)
--- NOTE | 2022-05-15 16:47 | ANE.PACU2 ---
Inpatient post-anesthesia follow up: Airway intact: Yes Vital signs: Temperature 98.3 F Pulse Rate 63 Respiratory Rate 16 Blood Pressure 92/57 Pulse Oximetry 95 Oxygen Delivery Me thod Room Air Oxygen Flow Rate 6 Fraction of Inspir ed Oxygen Hydration adequate: Yes Nausea and vomiting: No Pain level: 3 Mental status: Baseline Additional Comments: This is a late entry from 05/07/22.
== END 2022-05-10 11:34 | disposition home or self-care (01) | DRG 342 ==
LOC: ER 23:08 → MEDSURG 05-07 01:45
PROVIDERS: Physician Assistant; Surgery; Admitting Provider Internal Medicine; Emergency Provider Emergency Medicine; Visit Provider Student in an Organized Health Care Education/Training Program
PROC: 0DTJ4ZZ Resection of Appendix, Percutaneous Endoscopic Approach (ICD-10-PCS; CPT 44970; principal; 2022-05-07 14:00)
DX: K35.80 Unspecified acute appendicitis (principal); D68.2 Hereditary deficiency of other clotting factors; E87.6 Hypokalemia; R82.90 Unspecified abnormal findings in urine; E86.0 Dehydration; K21.9 Gastro-esophageal reflux disease without esophagitis; E66.01 Morbid (severe) obesity due to excess calories; J45.909 Unspecified asthma, uncomplicated; Z68.36 Body mass index [BMI] 36.0-36.9, adult; Z86.711 Personal history of pulmonary embolism; Z79.01 Long term (current) use of anticoagulants; Z98.84 Bariatric surgery status
CPT/HCPCS: 36415; 74177; 76705; 80053; 81001; 83540; 83550; 83690; 84443; 84703; 85025; 85610; 85730; 86850; 86900; 88304; 94640; 96365; 99285; C9113; J0131; J0330; J1100; J1170; J1200; J1644; J2250; J2405; J2543; J2704; J3010; J3480; J3490; J7120; J7611; J7626; Q9967